=== PATIENT | male | born 1955 | race African-American/Black ===

== ENCOUNTER 2023-01-10 07:07 | Inpatient (IN) | payer BC, MEDICARE ==
[~2023-01-10] VITALS: Ht 180.3 cm; Wt 127.9 kg
[2023-01-10] MEDS ORDERED: INSU100V7 SQ (07:37)
[2023-01-10] MEDS ORDERED: CARV12.5 PO (07:37)
[2023-01-10 07:38] LABS: HEMATOCRIT 35.8 % (36.7-47.1); MEAN CORPUSCULAR HEMOGLOBIN 27.1 uug (23.8-33.4); MEAN CORPUSCULAR VOLUME 85.2 fL (73.0-96.2); PLATELET COUNT (AUTO) 230 K/uL (152-348)
[2023-01-10 07:50] LABS: CREATININE 1.6 mg/dL (0.6-1.3); POTASSIUM 4.3 mmol/L (3.5-5.1)
[2023-01-10] MEDS ORDERED: LIDOCAINE HCL 1% 20 ML VIAL ONE ×2 (08:03→08:04)
[2023-01-10 10:30] VITALS: BP 144/75
[2023-01-10] MEDS ORDERED: CEFAZOLIN 1 G VIAL ONE (11:00)
[2023-01-10] MEDS ORDERED: PROPOFOL 200 MG/20 ML BOTTLE ONE (11:00)
[2023-01-10] MEDS ORDERED: MIDAZOLAM HCL 2 MG/2 ML VIAL ONE (11:33)
[2023-01-10] MEDS ORDERED: FENTANYL CITRATE 100 MCG/2 ML AMPUL ONE ×2 (11:33→12:35)
[2023-01-10] MEDS ORDERED: [UNRECOGNIZED DRUG - OTHER] (11:49)
[2023-01-10] MEDS ORDERED: SACU1TAB PO (11:49)
[2023-01-10] MEDS ORDERED: HYDR-4077 PO (11:49)
[2023-01-10] MEDS: HYDROCODONE/APAP 5-325MG TABLET PO PRN ×2 (14:52→20:58)
[2023-01-10] MEDS ORDERED: ENALAPRILAT DIHYDRATE 1.25 MG/1 ML VIAL IV PRN (15:45)
[2023-01-10] MEDS ORDERED: MORPHINE SULFATE 2 MG/1 ML DISP.SYRIN IV PRN (15:45)
[2023-01-10 16:00] VITALS: BP 177/87
[2023-01-10 16:42] VITALS: BP 163/81
[2023-01-10] MEDS ORDERED: SEMGLEE SQ (19:38)
[2023-01-10 20:00] VITALS: BP 170/86
[2023-01-10] MEDS ORDERED: ONDANSETRON 4 MG/2 ML VIAL IV PRN (20:30)
[2023-01-10] MEDS ORDERED: ACETAMINOPHEN 325 MG TABLET PO PRN (20:30)
[2023-01-10] MEDS ORDERED: TEMAZEPAM 15 MG CAPSULE PO PRN (20:30)
[2023-01-10] MEDS: hydrALAZINE HCL 50 MG TABLET PO SCH (20:57)
[2023-01-10] MEDS: CARVEDILOL 12.5 MG TABLET PO SCH (20:57)
[2023-01-10] MEDS ORDERED: INSULIN GLARGINE,HUM 300 UNITS/3 ML CARTRIDGE SQ SCH (21:00)
[2023-01-10] MEDS: ISOSORBIDE DINITRATE 10 MG TABLET PO SCH (23:54)
[2023-01-10 23:55] VITALS: BP 130/80
[2023-01-11 04:00] VITALS: BP 149/66
[2023-01-11] MEDS: ISOSORBIDE DINITRATE 10 MG TABLET PO SCH ×2 (06:16→13:14)
[2023-01-11] MEDS: BLOOD SUGAR DIAGNOSTIC 1 EACH STRIP VI SCH ×2 (06:18→11:33)
[2023-01-11] MEDS ORDERED: PANTOPRAZOLE SODIUM 40 MG TABLET.DR PO SCH (07:00)
[2023-01-11 08:05] LABS: HEMATOCRIT 33.4 % (36.7-47.1); MEAN CORPUSCULAR VOLUME 84.6 fL (73.0-96.2); PLATELET COUNT (AUTO) 225 K/uL (152-348)
[2023-01-11 08:09] LABS: THYROID STIMULATING HORMONE 1.41 mIU/mL (0.358-3.740)
[2023-01-11 08:13] LABS: BILIRUBIN,TOTAL 0.7 mg/dL (0.2-1.0); CREATININE 1.5 mg/dL (0.6-1.3); PHOSPHOROUS 3.6 mg/dL (2.5-4.9); POTASSIUM 4.3 mmol/L (3.5-5.1); TOTAL PROTEIN, SERUM 7.6 g/dL (6.4-8.2)
[2023-01-11] MEDS: HYDROCODONE/APAP 5-325MG TABLET PO PRN ×2 (08:39→14:27)
[2023-01-11] MEDS: hydrALAZINE HCL 50 MG TABLET PO SCH (08:39)
[2023-01-11] MEDS: CARVEDILOL 12.5 MG TABLET PO SCH (08:39)
[2023-01-11] MEDS ORDERED: BUMETANIDE 1 MG TABLET PO SCH (09:00)
[2023-01-11] MEDS ORDERED: BUMETANIDE 1 MG/4 ML VIAL IV ONE (09:30)
[2023-01-11 11:43] VITALS: BP_SYST 147; BP_SYST 151; BP_DIAS 65; BP_DIAS 88
[2023-01-11 13:14] VITALS: BP 148/78
[2023-01-11] MEDS ORDERED: HYDR-3972 PO (14:53)
== END 2023-01-11 15:05 | disposition home or self-care (01) | DRG 243 ==
LOC: EDSEX 07:07 → ER 07:07 → TELE3 09:57
PROVIDERS: ADMIT Internal Medicine; ATTEND Internal Medicine
PROC: 0JH606Z Insertion of Pacemaker, Dual Chamber into Chest Subcutaneous Tissue and Fascia, Open Approach (ICD-10-PCS; principal; 2023-01-10)
PROC: 02H63JZ Insertion of Pacemaker Lead into Right Atrium, Percutaneous Approach (ICD-10-PCS; 2023-01-10)
PROC: 02HK3JZ Insertion of Pacemaker Lead into Right Ventricle, Percutaneous Approach (ICD-10-PCS; 2023-01-10)
DX: I44.2 Atrioventricular block, complete (principal); I13.0 Hypertensive heart and chronic kidney disease with heart failure and stage 1 through stage 4 chronic kidney disease, or unspecified chronic kidney disease; I50.22 Chronic systolic (congestive) heart failure; I42.0 Dilated cardiomyopathy; N18.2 Chronic kidney disease, stage 2 (mild); I27.20 Pulmonary hypertension, unspecified; E11.22 Type 2 diabetes mellitus with diabetic chronic kidney disease; E11.65 Type 2 diabetes mellitus with hyperglycemia; D53.9 Nutritional anemia, unspecified; Z20.822 Contact with and (suspected) exposure to COVID-19; E66.9 Obesity, unspecified; Z68.39 Body mass index [BMI] 39.0-39.9, adult; Z79.4 Long term (current) use of insulin; Z79.899 Other long term (current) drug therapy; Z87.891 Personal history of nicotine dependence; R00.1 Bradycardia, unspecified
CPT/HCPCS: 36415; 71045; 83735; 84100; 84443; 85025; 85730; 86850; 86870; 86900; 86901; 93005; A4649; A4663; C1785; G0378; J0690; J1815; J2250; J2270; J3010; J3490